=== PATIENT | female | born 1995 | race Two or more races ===

== ENCOUNTER 2020-05-15 09:30 | Day surgery (SDC) | payer OTHER ==
[~2020-05-15] VITALS: Ht 162.6 cm; Wt 61.2 kg
[2020-05-16] MEDS ORDERED: PRENATAL + DHA1 EAC1 (15:34)
[2020-05-17] MEDS ORDERED: ELURYNG VAGINA1 EACH (08:18)
[2020-05-17] MEDS ORDERED: MOMETASONE FURO15 G2 (08:19)
[2020-05-18] MEDS ORDERED: CETAPHIL MOIST473 ML (10:36)
== END 2020-05-16 11:00 | disposition home or self-care (01) ==
LOC: CIR.AMB 09:30 → ER 05-16 14:50 → EDSTATUS 05-16 20:00 → SEC-K 05-16 20:31 → ER 05-16 20:31 → SEC-K 05-17 07:57 → O/R 05-17 07:57
PROVIDERS: ATTEND Obstetrics & Gynecology
DX: O03.4 Incomplete spontaneous abortion without complication (principal); Z20.822 Contact with and (suspected) exposure to COVID-19